=== PATIENT | female | born 1955 | race American Indian/Alaskan Native ===

== ENCOUNTER 2021-03-21 18:07 | Inpatient (IN) | payer SELFPAY ==
--- NOTE | 2021-03-21 18:48 | Emergency Department Report ---
ED General Adult HPI - General Chief complaint: Neuro Symptoms/Deficit Stated complaint: NUMBNESS LT SIDE FACE, SHOULDER ARM LEG PUI?: No Time Seen by Provider: 03/21/21 18:34 Source: patient, RN notes reviewed Mode of arrival: Ambulatory Limitations: No Limitations - History of Present Illness Initial comments: The patient is a 65-year-old female. She is not known to myself previously. She has a history of atrial fibrillation, and is maintained on aspirin. She also has a history of diabetes, hypertension and high cholesterol. She has a distant history of left-sided ocular prosthesis. She received her first COVID-19 vaccination 6 days ago. She presents to the ER today with a complaint of painless left-sided facial burning and numbness, left arm numbness, and left leg numbness. She denies headache, midline neck pain, abdominal pain, vomiting and diaphoresis. She endorses intermittent chronic central chest pressure. Left-sided neurologic symptoms are constant. They do not radiate anywhere. They do not have exacerbating relieving factors. She denies bladder/bowel retention incontinence and saddle anesthesia. Chest pain/pressure is intermittent. She states it is "there for a long time." The patient reports she informed he does not have insurance. She is also asking for refill on her insulin. She ran out of her insulin yesterday. -: Gradual, days(s) Location: face, left, upper extremity, lower extremity Severity scale (0 -10): 6 Consistency: constant Improves with: none Worsens with: none - Related Data Allergies Allergy/AdvReac Type Severity Reaction Status Date / Time No Known Allergies Allergy Unverified 08/19/13 11:05 ED Review of Systems ROS: Stated complaint: NUMBNESS LT SIDE FACE, SHOULDER ARM LEG Other details as noted in HPI Constitutional: denies: fever Eyes: denies: eye discharge, vision change ENT: denies: epistaxis Respiratory: denies: cough Cardiovascular: chest pain Gastrointestinal: denies: abdominal pain Neurological: numbness, paresthesias. denies: abnormal gait ED Past Medical Hx - Past Medical History Hx Hypertension: Yes Hx Diabetes: Yes - Surgical History Past Surgical History?: Yes Additional Surgical History: hysterectomy, eye surgery ED Physical Exam - General Limitations: No Limitations General appearance: alert, in no apparent distress - Head Head exam: Present: atraumatic, normocephalic - Eye Eye exam: Present: normal appearance, PERRL (Right eye. Left eye is a prosthetic. Left eye does not react to light), EOMI, other (Visual acuity intact to finger counting, color perception, reading at a close distance). Absent: nystagmus - ENT ENT exam: Present: normal exam, normal orophraynx, mucous membranes moist, normal external ear exam - Neck Neck exam: Present: normal inspection, full ROM. Absent: tenderness, meningismus - Respiratory Respiratory exam: Present: normal lung sounds bilaterally. Absent: respiratory distress, wheezes, rales, rhonchi, stridor, decreased breath sounds - Cardiovascular Cardiovascular Exam: Present: tachycardia, irregular rhythm, normal heart sounds. Absent: bradycardia, systolic murmur, diastolic murmur, rubs, gallop - GI/Abdominal GI/Abdominal exam: Present: soft. Absent: distended, tenderness, guarding, rebound, rigid, pulsatile mass - Extremities Exam Extremities exam: Present: normal inspection, full ROM, other (No facial droop. Tongue midline. Extraocular movements intact bilaterally. Facial sensation intact to light touch in V1, V2, V3 distribution bilaterally. 5 and a 5 strength in 4 extremities. Sensation intact to light touch in 4 extremities.). Absent: pedal edema, calf tenderness - Back Exam Back exam: Present: normal inspection, full ROM. Absent: tenderness, CVA te nderness (R), CVA tenderness (L), paraspinal tenderness, vertebral tenderness - Neurological Exam Neurological exam: Present: alert, oriented X3, normal gait (There is no past- pointing. There is no pronator drift. Normal tkrw-go-clee. Normal gait. Negative Romberg examination. Normal tandem gait), motor sensory deficit (Decreased sensation to light touch left arm and left leg.), other (5 out of 5 strength in 4 extremities.). Absent: CN II-XII intact (Decrease sensation to light touch left side V1, V2, V3 distribution. Tongue midline. EOMI. Hearing grossly intact. Shoulder shrug intact.) - Psychiatric Psychiatric exam: Present: anxious - Skin Skin exam: Present: warm, dry, intact, normal color. Absent: rash ED Course Vital Signs 03/21/21 03/21/21 03/21/21 18:17 19:30 19:40 Temperature 98.9 F 98.7 F Pulse Rate 101 H 91 H 88 Respiratory 14 14 Rate Blood Pressure 180/74 Blood Pressure 117/87 183/72 [Right] O2 Sat by Pulse 99 98 Oximetry - Reevaluation(s) Reevaluation #1: 03/21/21 19:35 Differential diagnosis, including but not limited to: Subacute stroke, paroxysmal A. fib, GERD, gastritis, hiatal hernia, pneumonia, costochondritis, coronary artery disease Assessment and plan: 65-year-old female with a primary complaint of left-sided facial numbness and burning, and left arm numbness, approximately 6 days into her clinical course. She has an NIH score of 1. She is not a TPA candidate as she presents more than 4.5 hours after symptom onset. She does not require emergent endovascular/CT angiographic imaging as she is more than 24 hours into her symptom onset. She is currently in a normal sinus rhythm. She has a GCS of 15. She denies travel, surgery, immobilization, DVT and pulmonary embolism risk factors. She endorses chronic chest pain. Equal pulses in the upper and lower extremities, no pulsatile abdominal mass, not especially hypertensive. Aortic disease is very unlikely. Have recommended admission to the medical service for evaluation for presumed subacute stroke. I have discussed this with the patient. She is agreeable to this plan of care. Neurology recommendations are reviewed and appreciated. Laboratory studies and noncontrast CT scan of the brain are pending. 03/21/21 20:51 Laboratory studies reviewed and appreciated. We will replete potassium. Noncontrast CT scan of the brain suggests thalamic infarct, subacute. Hospital physician, Dr. Levi Clay to admit to IMS - Consultations Consultation #1: 03/21/21 19:33 Discussed history, physical, clinical impression with neurology on-call, Dr. Corea. Patient is 6 days into symptoms. She is therefore not a TPA candidate. In addition, given more than 24 hours of symptoms, no indication for emergent CT angiogram head and neck. Agrees with plan for admission, and subacute stroke work-up. Patient is currently in a sinus rhythm. ED Medical Decision Making - Lab Data Result diagrams: 03/21/21 19:07 03/21/21 19:07 Vital Signs 03/21/21 18:17 Temperature 98.9 F Pulse Rate 101 H Respiratory 14 Rate Blood Pressure 117/87 [Right] O2 Sat by Pulse 99 Oximetry Lab Results 03/21/21 03/21/21 03/21/21 Range/Units 18:17 19:07 19:07 WBC 10.9 (4.5-11.0) K/mm3 RBC 5.46 H (3.65-5.03) M/mm3 Hgb 13.8 (10.1-14.3) gm/dl Hct 41.0 (30.3-42.9) % MCV 75 L (79-97) fl MCH 25 L (28-32) pg MCHC 34 (30-34) % RDW 16.7 H (13.2-15.2) % Plt Count 434 (140-440) K/mm3 Lymph % (Auto) 28.4 (13.4-35.0) % [place] % (Auto) 5.0 (0.0-7.3) % Eos % (Auto) 1.2 (0.0-4.3) % Baso % (Auto) 1.1 (0.0-1.8) % Lymph # (Auto) 3.1 (1.2-5.4) K/mm3 [place] # (Auto) 0.5 (0.0-0.8) K/mm3 Eos # (Auto) 0.1 (0.0-0.4) K/mm3 Baso # (Auto) 0.1 (0.0-0.1) K/mm3 Seg Neutrophils % 64.3 (40.0-70.0) % Seg Neutrophils # 7.0 (1.8-7.7) K/mm3 PT 13.3 (12.2-14.9) Sec. INR 0.91 (0.87-1.13) APTT 29.1 (24.2-36.6) Sec. Thrombin Time 17.7 (15.1-19.6) Sec. POC Glucose 182 H (70-105) mg/dL - EKG Data -: EKG Interpreted by Hi EKG shows normal: sinus rhythm Rate: normal - EKG Data When compared to previous EKG there are: previous EKG unavailable 03/21/21 19:34 EKG #1 is interpreted at 18: 49 Sinus rhythm, rate 92 bpm. Normal axis, normal P wave axis. Poor R wave progression. QTc 502 ms. Motion artifact. This is not a STEMI. - Radiology Data Radiology results: pending, report reviewed, image reviewed CT BRAIN: 03/21/2021 INDICATION / CLINICAL INFORMATION: Stroke symptoms. COMPARISON: None available. FINDINGS: BRAIN/INTRACRANIAL STRUCTURES: [place] cal CT images of the brain demonstrate no evidence of acute abnormality. Ventricles and sulci are slightly prominent in size, consistent with age-related atrophic change. 5 mm hypodensity in the right thalamus is present, consistent with chronic lacunar ischemic injury. There is no evidence of acute large vessel territory ischemic injury, hemorrhage, or mass. EXTRACRANIAL STRUCTURES: Incidental note is made of a left ocular prosthesis. IMPRESSION: No acute abnormality. All CT scans at this location are performed using dose reduction to ALARA by means of automated exposure control. Signer Name: Prashant Calvert MD Signed: 03/21/2021 7:34 PM CHEST 2 VIEWS INDICATION / CLINICAL INFORMATION: hx of cp. COMPARISON: None available. FINDINGS: SUPPORT DEVICES: None. HEART / MEDIASTINUM: No significant abnormality. LUNGS / PLEURA: No significant pulmonary or pleural abnormality. No pneumothorax. ADDITIONAL FINDINGS: No significant additional findings. IMPRESSION: 1. No acute findings. Signer Name: Juan Lindo MD Signed: 03/21/2021 6:13 PM Workstation Name: [id number] Critical Care Time: Yes Critical care time in (mins) excluding proc time.: 35 Critical care attestation.: If time is entered above; I have spent that time in minutes in the direct care of this critically ill patient, excluding procedure time. ED Disposition Clinical Impression: History of chest pain, Left sided numbness, Paroxysmal A-fib, Hypokalemia Disposition: ADMITTED INPATIENT Is pt being admited?: Yes Does the pt Need Aspirin: No Condition: Good Heart Score - HEART Score History: Slightly suspicious EKG: Non-specific Age: 45-65 Risk factors: > 3 risk factors or hx of atherosclerotic disease Troponin: < normal limit HEART Score: 4 - EKG Read Time Time EKG Completed: 18:49 EKG Read Time: 18:49 - Critical Actions Critical Actions: 4-6 pts:12-16.6% risk of adverse cardiac event. Should be admitted - Assessment Assessment Interval: Baseline - Level of Consciousness 1a. Level of Consciousness: alert/keenly responsive - LOC Questions 1b. LOC Questions: answers both correctly - LOC Command 1c. LOC Commands: performs tasks correctly - Best Gaze 2. Best Gaze: normal - Visual 3. Visual: no visual loss - Facial Palsy 4. Facial Palsy: normal symmetrical movement - Motor Arm 5a. Motor Arm Left: no drift 5b. Motor Arm Right: no drift - Motor Leg 6a. Motor Leg Left: no drift 6b. Motor Leg Right: no drift - Limb Ataxia 7. Limb Ataxia: absent - Sensory 8. Sensory: mild/moderate sensory loss - Best Language 9. Best Language: no aphasia - Dysarthria 10. Dysarthria: normal - Extinction and Inattention 11. Extinction/Inattention: no abnormality - Scoring Total Score: 1 Stroke Severity: Minor Stroke
[2021-03-21] MEDS ORDERED: dilTIAZem 30 MG TAB PO ONE (18:52)
[2021-03-21] MEDS ORDERED: dilTIAZem 25 MG/5 ML INJ IV ONE (18:52)
--- NOTE | 2021-03-21 19:17 | Emergency Department Report ---
Blank Doc - Documentation Documentation: [facility] Consult Note # Demographics Consult Type: General Neurology Patient Location: Emergency Room First Name: Shandra Last Name: Bossman Date of : 1955 Age: 65 Gender: Female Facility: [facility] Time of Initial Page (Eastern Time): 03/21/2021, 18:51 Time of Return Call (Eastern Time): 03/21/2021, 18:51 Phone Only Consult: 65yo F presents with 5-6 days of left sided numbness. she is correlating this with getting her first COVID shot. has loss of sensation on exam. # PMH-FH-SH Past Medical History: A-fib Diabetes hyperlipidemia # Assessment Impression: Ischemic Stroke (Subacute) # Plan Blood Pressure Management: labetolol Target Blood Pressure: SBP < 220 SBP > 100 Labs: hemoglobin A1c lipid panel Imaging: (urgency: STAT): CT Angiogram Head and CT Angiogram Neck AND call back with results if abnormal Imaging: (urgency: routine): MRI Brain without contrast Diagnostic Test: echo without bubble study Therapy/Evaluation: NPO until swallow evaluation PT/OT evaluation speech/swallow consultation Medication: aspirin 81 mg daily start statin with goal of LDL < 70 ultimately will need anticoagulation for a fib as this is the cause of the stroke if confirmed DVT Prophylaxis: SCD Other: LDL < 70 If patient has any neurological deterioration please call me back immediately permissive hypertension telemetry monitoring I have discussed my recommendations with the referring provider Disposition: admit # Logistics Telemedicine: phone only
--- NOTE | 2021-03-21 19:17 | XRay Report ---
CHEST 2 VIEWS INDICATION / CLINICAL INFORMATION: hx of cp. COMPARISON: None available. FINDINGS: SUPPORT DEVICES: None. HEART / MEDIASTINUM: No significant abnormality. LUNGS / PLEURA: No significant pulmonary or pleural abnormality. No pneumothorax. ADDITIONAL FINDINGS: No significant additional findings. IMPRESSION: 1. No acute findings. Signer Name: Juan Lindo MD Signed: 03/21/2021 7:13 PM Workstation Name: [id number]
[2021-03-21 19:20] LABS: Basophils # (Auto) 0.1 K/mm3 (0.0-0.1); Basophils % (Auto) 1.1 % (0.0-1.8); Eosinophils # (Auto) 0.1 K/mm3 (0.0-0.4); Eosinophils % (Auto) 1.2 % (0.0-4.3); Hemoglobin 13.8 gm/dl (10.1-14.3); Lymphocytes # (Auto) 3.1 K/mm3 (1.2-5.4); Lymphocytes % (Auto) 28.4 % (13.4-35.0); Mean Corpuscular HGB Conc 34 % (30-34); Mean Corpuscular Volume 75 fl (79-97); Monocytes # (Auto) 0.5 K/mm3 (0.0-0.8); Platelet Count 434 K/mm3 (140-440); Red Blood Count 5.46 M/mm3 (3.65-5.03); Red Cell Distribution Width 16.7 % (13.2-15.2)
[2021-03-21 19:33] LABS: INR 0.91 (0.87-1.13); Partial Thromboplastin Time 29.1 Sec. (24.2-36.6)
[2021-03-21 19:34] LABS: Thrombin Time 17.7 Sec. (15.1-19.6)
[2021-03-21 19:44] LABS: Creatine Kinase MB 1.4 ng/mL (0.0-4.0)
[2021-03-21 19:45] LABS: Alanine Aminotransferase 37 units/L (7-56); Albumin 3.9 g/dL (3.9-5); BUN/Creatinine Ratio 16; Blood Urea Nitrogen 13 mg/dL (7-17); Calcium 9.9 mg/dL (8.4-10.2); Hemolysis Index 7
[2021-03-21] MEDS ORDERED: POTASSIUM CHLORIDE ER 20 MEQ TAB PO ONE (20:25)
--- NOTE | 2021-03-21 20:38 | Cat Scan Report ---
CT BRAIN: 03/21/2021 INDICATION / CLINICAL INFORMATION: Stroke symptoms. COMPARISON: None available. FINDINGS: BRAIN/INTRACRANIAL STRUCTURES: Unenhanced CT images of the brain demonstrate no evidence of acute abn ormality. Ventricles and sulci are slightly prominent in size, consistent with age-related atrophic change. 5 mm hypodensity in the right thalamus is present, consistent with chronic lacunar ischemic injury. There is no evidence of acute large vessel territory ischemic injury, hemorrhage, or mass. EXTRACRANIAL STRUCTURES: Incidental note is made of a left ocular prosthesis. IMPRESSION: No acute abnormality. All CT scans at this location are performed using dose reduction to ALARA by means of automated expos ure control. Signer Name: Prashant Calvert MD Signed: 03/21/2021 8:34 PM Workstation Name: [id number]
[2021-03-21] MEDS ORDERED: ASPIRIN 81 MG TAB CHEW PO ONE (20:51)
[2021-03-21 21:57] LABS: Bacteria,Urine 1+ /HPF (Negative); Bilirubin,Urine NEG (Negative); Blood,Urine NEG (Negative); Color,Urine Yellow (Yellow); Mucus,Urine FEW /HPF; Urobilinogen,Urine < 2.0 mg/dL (<2.0)
[2021-03-21 22:00] LABS: Protein,Urine >500 mg/dL (Negative)
[2021-03-21] MEDS ORDERED: METOCLOPRAMIDE 10 MG TAB PO PRN (22:36)
[2021-03-21] MEDS ORDERED: MORPHINE 4 MG/1 ML INJ IV PRN (22:36)
[2021-03-21] MEDS ORDERED: MAGNESIUM HYDROXIDE (MOM) ORAL LIQD UDC PO PRN (22:36)
[2021-03-21] MEDS ORDERED: PROMETHAZINE 25 MG RECT SUPP PR PRN (22:36)
[2021-03-21] MEDS ORDERED: DEXTROSE 50% IN WATER (25GM) 50 ML SYRINGE IV PRN (22:36)
--- NOTE | 2021-03-21 22:52 | History and Physical Report ---
History of Present Illness Date of examination: 03/21/21 Date of admission: 03/21/21 21:56 Chief complaint: Left Sided Numbness History of present illness: 65-year-old -[place] female with known history of hypertension, hyperlipidemia, diabetes mellitus and known history of atrial fibrillation presenting to the emergency room today complaining of left-sided numbness which has been ongoing for about 6 days. Patient states that she got first dose of COVID-19 less than a week ago. She denies any fever or chills, no headache or dizziness, no diaphoresis. No chest pain or shortness of breath. She however indicates that her blood pressure has not been well controlled at home. Her blood pressure today was reading about 200s systolic prior to reporting to the emergency room. She denies any slurred speech or facial asymmetry and denies any difficulty swallowing. She denies any bladder or urinary incontinence. Denies any blurry vision. However she has known history of left eye prosthesis. Work-up in the emergency room today, there is a 5 mm hypodensity in the right thalamus consistent with a chronic lacunar ischemic injury. Chest x-ray shows no acute findings. Past History Past Medical History: diabetes, hypertension Past Surgical History: hysterectomy, Other (Left Eye surgery) Social history: no significant social history Family history: no significant family history Medications and Allergies Allergies Allergy/AdvReac Type Severity Reaction Status Date / Time No Known Allergies Allergy Verified 03/21/21 22:55 Active Meds: Active Medications Acetaminophen (Acetaminophen 325 Mg Tab) 650 mg PO Q4H PRN PRN Reason: Pain, Mild (1-3) Aspirin (Aspirin 325 Mg Tab) 325 mg PO QDAY SLOANE Atorvastatin Calcium (Atorvastatin 40 Mg Tab) 40 mg PO QHS SLOANE Bisacodyl (Bisacodyl 10 Mg Rect Supp) 10 mg UT QDAY PRN PRN Reason: Constipation Dextrose (Dextrose 50% In Water (25gm) 50 Ml Syringe) 50 ml IV Q30MIN PRN; Protocol PRN Reason: Hypoglycemia Insulin Human Lispro (Insulin Lispro 100 Unit/Ml) 0 unit SUB-Q ACHS SLOANE; Protocol Magnesium Hydroxide (Magnesium Hydroxide (Mom) Oral Liqd Udc) 30 ml PO Q4H PRN PRN Reason: Constipation Metoclopramide HCl (Metoclopramide 10 Mg Tab) 10 mg PO Q6H PRN PRN Reason: Nausea And Vomiting Morphine Sulfate (Morphine 4 Mg/1 Ml Inj) 4 mg IV Q4H PRN PRN Reason: Pain , Severe (7-10) Morphine Sulfate (Morphine 2 Mg/1 Ml Inj) 2 mg IV Q4H PRN PRN Reason: Pain, Moderate (4-6) Ondansetron HCl (Ondansetron 4 Mg/2 Ml Inj) 4 mg IV Q8H PRN PRN Reason: Nausea And Vomiting Promethazine HCl (Promethazine 25 Mg Rect Supp) 25 mg UT Q6H PRN PRN Reason: Nausea And Vomiting Sodium Chloride (Sodium Chloride 0.9% 10 Ml Flush Syringe) 10 ml INJ PRN PRN PRN Reason: LINE FLUSH Review of Systems Constitutional: no fever, no chills Ears, nose, mouth and throat: no nasal congestion, no sore throat Cardiovascular: no chest pain, no palpitations Respiratory: no cough, no cough with sputum, no shortness of breath Gastrointestinal: no abdominal pain, no nausea, no vomiting, no diarrhea Genitourinary Female: no pelvic pain, no flank pain, no dysuria, no hematuria Musculoskeletal: no neck pain, no low back pain Integumentary: no rash, no pruritis Neurological: numbness (Left sided), no headaches, no change in speech, no confusion Psychiatric: no anxiety, no depression Endocrine: no polyphagia, no polydipsia, no polyuria, no nocturia Exam - Constitutional Vitals: Temp Pulse Resp BP Pulse Ox 98.7 F 88 14 180/74 98 03/21/21 19:30 03/21/21 19:40 03/21/21 19:30 03/21/21 19:40 03/21/21 19:30 General appearance: Present: no acute distress, well-nourished - EENT Eyes: Present: PERRL, EOM intact. Absent: scleral icterus ENT: hearing intact, clear oral mucosa, dentition normal - Neck Neck: Present: supple, normal ROM - Respiratory Respiratory effort: normal Respiratory: bilateral: CTA - Cardiovascular Rhythm: irregularly irregular Heart Sounds: Present: S1 & S2. Absent: gallop, systolic murmur, diastolic murmur, rub, click - Extremities Extremities: no ischemia, pulses intact, pulses symmetrical, No edema, normal temperature, normal color, Full ROM Peripheral Pulses: within normal limits - Abdominal General gastrointestinal: Present: soft, non-tender, non-distended, normal bowel sounds. Absent: mass - Integumentary Integumentary: Present: clear, warm, dry. Absent: rash - Musculoskeletal Musculoskeletal: strength equal bilaterally - Psychiatric Psychiatric: appropriate mood/affect, intact judgment & insight, memory intact, cooperative - Neurologic Neurologic: CNII-XII intact, no focal deficits, moves all extremities, other (Left sided Numbness) HEART Score - HEART Score EKG: Non-specific Age: 45-65 Risk factors: > 3 risk factors or hx of atherosclerotic disease Troponin: Troponin T < 0.010 ng/mL (0.00-0.029) 03/21/21 19:07 Troponin: < normal limit - Critical Actions Critical Actions: 4-6 pts:12-16.6% risk of adverse cardiac event. Should be admitted Results - Labs CBC & Chem 7: 03/21/21 19:07 03/21/21 19:07 Labs: Abnormal lab results 03/21/21 03/21/21 03/21/21 Range/Units 18:17 19:07 19:07 RBC 5.46 H (3.65-5.03) M/mm3 MCV 75 L (79-97) fl MCH 25 L (28-32) pg RDW 16.7 H (13.2-15.2) % Sodium 136 L (137-145) mmol/L Potassium 3.2 L (3.6-5.0) mmol/L Chloride 94.8 L (98-107) mmol/L Glucose 239 H (65-100) mg/dL POC Glucose 182 H (70-105) mg/dL Alkaline Phosphatase 204 H (35-129) units/L Assessment and Plan - Patient Problems (1) Left sided numbness Current Visit: Yes Status: Acute Plan to address problem: Will work-up patient for possible CVA. Patient commenced on daily aspirin. We will schedule for echocardiogram, carotid Doppler and MRI of the brain. We will request neurology follow-up. (2) Hypokalemia Current Visit: Yes Status: Acute Plan to address problem: Potassium will be repleted and will monitor chemistry. (3) Diabetes mellitus Current Visit: Yes Status: Acute Plan to address problem: We will monitor Accu-Cheks closely. Patient placed on sliding scale insulin. (4) Hypertension Current Visit: Yes Status: Acute Plan to address problem: We will resume routine home medications and monitor vital signs closely. (5) Paroxysmal A-fib Current Visit: Yes Status: Acute Plan to address problem: Rate is controlled. (6) DVT prophylaxis Current Visit: Yes Status: Acute Plan to address problem: Patient placed on subcutaneous heparin. (7) Full code status Current Visit: Yes Status: Acute Plan to address problem: Patient is full code.
[2021-03-22] MEDS: ONDANSETRON 4 MG/2 ML INJ IV PRN (00:22)
[2021-03-22 07:31] LABS: Blood Urea Nitrogen 14 mg/dL (7-17); Calcium 9.1 mg/dL (8.4-10.2); Hemolysis Index 3
[2021-03-22 07:35] LABS: Chol/HDL Ratio 6.59 %
[2021-03-22 07:38] LABS: BUN/Creatinine Ratio 23
[2021-03-22] MEDS: INSULIN LISPRO 100 UNIT/ML SUB-Q SCH ×4 (08:30→21:23)
[2021-03-22] MEDS ORDERED: LORazepam 2 MG/ML VIAL IV ONE (09:01)
[2021-03-22] MEDS: ASPIRIN 325 MG TAB PO SCH (09:35)
--- NOTE | 2021-03-22 09:54 | Progress Note ---
Assessment and Plan Assessment and plan: 65-year-old -Nepalese female with known history of hypertension, hyperlipidemia, diabetes mellitus and known history of atrial fibrillation presented to the emergency room complaining of left-sided numbness which has been ongoing for about 6 days LICENSED ARCHITECT. Patient reported that her blood pressure had not been well controlled at home. Her blood pressure on admission was reading about 200s systolic prior to reporting to the emergency room. She denied any slurred speech or facial asymmetry and denied any difficulty swallowing. She denied any bladder or urinary incontinence. Denied any blurry vision. However, she has known history of left eye prosthesis. Work-up in the emergency room included CT scan which revealed a 5 mm hypodensity in the right thalamus consistent with a chronic lacunar ischemic injury. Chest x-ray showed no acute findings. CVA with left-sided numbness Hypokalemia Diabetes mellitus type 2 Hypertension Paroxysmal atrial fibrillation 03/22/2021. We will continue with stroke work-up and follow-up MRI of brain, echocardiogram and carotid ultrasound. Neurology consultation pending. PT/OT/ST evaluations. History Interval history: No new issues overnight Hospitalist Physical - Constitutional Vitals: Temp Pulse Resp BP Pulse Ox 98.7 F 80 17 156/72 94 03/21/21 19:30 03/22/21 05:45 03/22/21 08:45 03/22/21 08:45 03/22/21 08:45 General appearance: Present: no acute distress, well-nourished - EENT Eyes: Present: PERRL, EOM intact ENT: hearing intact, clear oral mucosa, dentition normal - Neck Neck: Present: supple, normal ROM - Respiratory Respiratory effort: normal Respiratory: bilateral: CTA - Cardiovascular Rhythm: regular Heart Sounds: Present: S1 & S2. Absent: gallop, rub - Extremities Extremities: no ischemia, No edema, Full ROM - Abdominal General gastrointestinal: soft, non-tender, non-distended, normal bowel sounds - Integumentary Integumentary: Present: clear, warm, dry - Neurologic Neurologic: CNII-XII intact, moves all extremities HEART Score - HEART Score EKG: Non-specific Age: 45-65 Risk factors: > 3 risk factors or hx of atherosclerotic disease Troponin: Troponin T < 0.010 ng/mL (0.00-0.029) 03/21/21 19:07 Troponin: < normal limit - Critical Actions Critical Actions: 4-6 pts:12-16.6% risk of adverse cardiac event. Should be admitted Results - Labs CBC & Chem 7: 03/21/21 19:07 03/22/21 06:53 Labs: Laboratory Last Values WBC 10.9 K/mm3 (4.5-11.0) 03/21/21 19:07 RBC 5.46 M/mm3 (3.65-5.03) H 03/21/21 19:07 Hgb 13.8 gm/dl (10.1-14.3) 03/21/21 19:07 Hct 41.0 % (30.3-42.9) 03/21/21 19:07 MCV 75 fl (79-97) L 03/21/21 19:07 MCH 25 pg (28-32) L 03/21/21 19:07 MCHC 34 % (30-34) 03/21/21 19:07 RDW 16.7 % (13.2-15.2) H 03/21/21 19:07 Plt Count 434 K/mm3 (140-440) 03/21/21 19:07 Lymph % (Auto) 28.4 % (13.4-35.0) 03/21/21 19:07 [place]pson % (Auto) 5.0 % (0.0-7.3) 03/21/21 19:07 Eos % (Auto) 1.2 % (0.0-4.3) 03/21/21 19:07 Baso % (Auto) 1.1 % (0.0-1.8) 03/21/21 19:07 Lymph # (Auto) 3.1 K/mm3 (1.2-5.4) 03/21/21 19:07 Upson # (Auto) 0.5 K/mm3 (0.0-0.8) 03/21/21 19:07 Eos # (Auto) 0.1 K/mm3 (0.0-0.4) 03/21/21 19:07 Baso # (Auto) 0.1 K/mm3 (0.0-0.1) 03/21/21 19:07 Seg Neutrophils % 64.3 % (40.0-70.0) 03/21/21 19:07 Seg Neutrophils # 7.0 K/mm3 (1.8-7.7) 03/21/21 19:07 PT 13.3 Sec. (12.2-14.9) 03/21/21 19:07 INR 0.91 (0.87-1.13) 03/21/21 19:07 APTT 29.1 Sec. (24.2-36.6) 03/21/21 19:07 Thrombin Time 17.7 Sec. (15.1-19.6) 03/21/21 19:07 Sodium 136 mmol/L (137-145) L 03/22/21 06:53 Potassium 3.9 mmol/L (3.6-5.0) D 03/22/21 06:53 Chloride 97.0 mmol/L (98-107) L 03/22/21 06:53 Carbon Dioxide 27 mmol/L (22-30) 03/22/21 06:53 Anion Gap 16 mmol/L 03/22/21 06:53 BUN 14 mg/dL (7-17) 03/22/21 06:53 Creatinine 0.6 mg/dL (0.6-1.2) 03/22/21 06:53 Estimated GFR > 60 ml/min 03/22/21 06:53 BUN/Creatinine Ratio 23 % 03/22/21 06:53 Glucose 271 mg/dL (65-100) H 03/22/21 06:53 POC Glucose 255 mg/dL (70-105) H 03/22/21 08:17 Calcium 9.1 mg/dL (8.4-10.2) 03/22/21 06:53 Magnesium 2.10 mg/dL (1.7-2.3) 03/21/21 19:07 Total Bilirubin 0.30 mg/dL (0.1-1.2) 03/21/21 19:07 AST 38 units/L (5-40) 03/21/21 19:07 ALT 37 units/L (7-56) 03/21/21 19:07 Alkaline Phosphatase 204 units/L (35-129) H 03/21/21 19:07 Total Creatine Kinase 101 units/L (30-135) 03/21/21 19:07 CK-MB (CK-2) 1.4 ng/mL (0.0-4.0) 03/21/21 19:07 CK-MB (CK-2) Rel Index 1.3 (0-4) 03/21/21 19:07 Troponin T < 0.010 ng/mL (0.00-0.029) 03/21/21 19:07 Total Protein 8.0 g/dL (6.3-8.2) 03/21/21 19:07 Albumin 3.9 g/dL (3.9-5) 03/21/21 19:07 Albumin/Globulin Ratio 1.0 % 03/21/21 19:07 Triglycerides 236 mg/dL (2-149) H 03/22/21 06:53 Cholesterol 290 mg/dL (50-199) H 03/22/21 06:53 LDL Cholesterol Direct 216 mg/dL (50-130) H 03/22/21 06:53 HDL Cholesterol 44 mg/dL (40-59) 03/22/21 06:53 Cholesterol/HDL Ratio 6.59 % 03/22/21 06:53 Urine Color Yellow (Yellow) 03/21/21 21:16 Urine Turbidity Clear (Clear) 03/21/21 21:16 Urine pH 6.0 (5.0-7.0) 03/21/21 21:16 Ur Specific Powell 1.015 (1.003-1.030) 03/21/21 21:16 Urine Protein >500 mg/dL (Negative) 03/21/21 21:16 Urine Glucose (UA) >=500 mg/dL (Negative) 03/21/21 21:16 Urine Ketones Tr mg/dL (Negative) 03/21/21 21:16 Urine Blood Neg (Negative) 03/21/21 21:16 Urine Nitrite Neg (Negative) 03/21/21 21:16 Urine Bilirubin Neg (Negative) 03/21/21 21:16 Urine Urobilinogen < 2.0 mg/dL (<2.0) 03/21/21 21:16 Ur Leukocyte Esterase Neg (Negative) 03/21/21 21:16 Urine WBC (Auto) 2.0 /HPF (0.0-6.0) 03/21/21 21:16 Urine RBC (Auto) 3.0 /HPF (0.0-6.0) 03/21/21 21:16 U Epithel Cells (Auto) 8.0 /HPF (0-13.0) 03/21/21 21:16 Urine Bacteria (Auto) 1+ /HPF (Negative) 03/21/21 21:16 Urine Mucus Few /HPF 03/21/21 21:16 Active Medications - Current Medications Current Medications: Generic Name Dose Route Start Last Admin Trade Name Freq PRN Reason Stop Dose Admin Acetaminophen 650 mg 03/21/21 22:36 Acetaminophen 325 Mg Tab PO Q4H PRN Pain, Mild (1-3) Aspirin 325 mg 03/22/21 10:00 03/22/21 09:35 Aspirin 325 Mg Tab PO 325 mg QDAY SLOANE Administration Atorvastatin Calcium 40 mg 03/22/21 22:00 Atorvastatin 40 Mg Tab PO QHS SLOANE Bisacodyl 10 mg 03/21/21 22:36 Bisacodyl 10 Mg Rect Supp AR QDAY PRN Constipation Dextrose 50 ml 03/21/21 22:36 Dextrose 50% In Water (25gm) 50 Ml Syringe IV Q30MIN PRN Hypoglycemia Protocol Insulin Human Lispro 0 unit 03/22/21 07:30 03/22/21 08:30 Insulin Lispro 100 Unit/Ml SUB-Q 4 unit ACHS SLOANE Administration Protocol Magnesium Hydroxide 30 ml 03/21/21 22:36 Magnesium Hydroxide (Mom) Oral Liqd Udc PO Q4H PRN Constipation Metoclopramide HCl 10 mg 03/21/21 22:36 Metoclopramide 10 Mg Tab PO Q6H PRN Nausea And Vomiting Morphine Sulfate 4 mg 03/21/21 22:36 03/22/21 00:19 Morphine 4 Mg/1 Ml Inj IV 4 mg Q4H PRN Administration Pain , Severe (7-10) Morphine Sulfate 2 mg 03/21/21 22:36 Morphine 2 Mg/1 Ml Inj IV Q4H PRN Pain, Moderate (4-6) Ondansetron HCl 4 mg 03/21/21 22:36 03/22/21 00:22 Ondansetron 4 Mg/2 Ml Inj IV 4 mg Q8H PRN Administration Nausea And Vomiting Promethazine HCl 25 mg 03/21/21 22:36 Promethazine 25 Mg Rect Supp AR Q6H PRN Nausea And Vomiting Sodium Chloride 10 ml 03/21/21 22:36 Sodium Chloride 0.9% 10 Ml Flush Syringe IV PRN PRN LINE FLUSH
--- NOTE | 2021-03-22 10:47 | Magnetic Resonance Report ---
NONENHANCED MR SCAN OF THE BRAIN: INDICATION / CLINICAL INFORMATION: stroke, LT SIDED WEAKNESS. TECHNIQUE: Multiplanar, multisequence MR images of the brain obtained. COMPARISON: CT scan of the head from 03/21/2021 FINDINGS: BRAIN / INTRACRANIAL CONTENTS: Punctate area of subacute ischemia in the right thalamus, not extendin g up to the border of posterior limb of right internal capsule; this infarction more than 12 hours ol d (increased T2 signal intensity) but less than 5 days old (low ADC). In the gradient echo images, no susceptibility changes seen which would exclude hemorrhagic changes. Brainstem is normal. No focal lesion seen in the cerebellar hemispheres. However, moderate volume los s is seen in the cerebellar hemispheres. In the cerebral hemispheres, few scattered white matter lesi ons (Fazekas 0-1) due to chronic small vessel disease. CRANIOCERVICAL JUNCTION: No significant abnormality. VASCULAR FLOW-VOIDS: No significant abnormality. ORBITS: Prosthesis in the left orbit SINUSES / MASTOIDS: Mucosal thickening in the right posterior ethmoid air cells ADDITIONAL FINDINGS: Pituitary gland appears generous on the left side (height of the gland 8 mm on t he left side) IMPRESSION: Subacute nonhemorrhagic lacune in the right thalamus Signer Name: Bella Lentz MD Signed: 03/22/2021 10:43 AM Workstation Name: [id number]
--- NOTE | 2021-03-22 11:23 | Electrocardiograph Report ---
[facility] Test Date: 2021-03-21 Test Time: 18:49:45 Pat Name: SHYLA ISAAC Department: Room: [place] [address] Gender: F Compensation Programs Manager: CONSTANTIN : 1955 Requested By: SHO MARTINEZ Order Number: [id number] Reading MD: Rosanne Hawthorne Measurements Intervals [place] Rate: 92 P: 64 TN: 176 QRS: 63 QRSD: 90 T: 6 QT: 405 QTc: 502 Interpretive Statements Sinus rhythm Occasional PACs Probable left atrial enlargement Anterior infarct, old Prolonged QT interval No previous ECG available for comparison Electronically Signed On 03-22-2021 11:23:09 EST by Rosanne Hawthorne
--- NOTE | 2021-03-22 13:00 | Vascular Lab Report ---
DUPLEX DOPPLER ULTRASOUND CAROTID, BILATERAL INDICATION / CLINICAL INFORMATION: . COMPARISON: None available. FINDINGS: RIGHT CAROTID: Moderate to severe calcified and noncalcified plaque formation at the proximal ICA jermain r the bifurcation. - PLAQUE ESTIMATE (%): 50 to 69% stenosis at the right ICA based on velocity criteria. - CCA velocity: 131 cm/sec. - ICA peak systolic velocity: 197 cm/sec. - ICA/CCA PSV Ratio: Less than 2.0 Right Vertebral Artery: Antegrade flow. LEFT CAROTID: Moderate calcified and noncalcified plaque formation at the proximal ICA near the bifur cation. - PLAQUE ESTIMATE (%): < 50% - CCA velocity: 146 cm/sec. - ICA peak systolic velocity: 127 cm/sec. - ICA/CCA PSV Ratio: Less than 2.0 Left Vertebral Artery: Antegrade flow. IMPRESSION: 1. Right Internal Carotid Artery: 50-69% stenosis. 2. Left Internal Carotid Artery: Less than 50% diameter stenosis. Velocity criteria are extrapolated from diameter data as defined by the Society of Radiologists in Ul trasound Consensus Conference, Radiology 2003; 229;340-346. NO STENOSIS (NORMAL) - Plaque = none; ICA PSV < 125 cm/sec; ICA/CCA PSV Ratio < 2.0 <50% STENOSIS - Plaque < 50%; ICA PSV < 125 cm/sec; ICA/CCA PSV Ratio < 2.0 50-69% STENOSIS - Plaque > 50%; ICA PSV = 125-230 cm/sec; ICA/CCA PSV Ratio = 2.0-4.0 >70% BUT <100% STENOSIS - Plaque > 50%; ICA PSV > 230 cm/sec; ICA/CCA PSV Ratio > 4.0 NEAR OCCLUSION - Plaque = visible lumen; ICA PSV = high/low/none; ICA/CCA PSV Ratio = variable TOTAL OCCLUSION - Plaque = no lumen; ICA PSV = none; ICA/CCA PSV Ratio = N/A Signer Name: Moncho Walls MD Signed: 03/22/2021 12:56 PM Workstation Name: [id number]
--- NOTE | 2021-03-22 15:38 | Consultation ---
History of Present Illness Consult date: 03/22/21 Reason for Consult: CVA History of present illness: 5-year-old -[place] female with known history of hypertension, hyperlipidemia, diabetes mellitus and known history of atrial fibrillation presenting to the emergency room today complaining of left-sided numbness which has been ongoing for about 6 days. Patient states that she got first dose of COVID-19 less than a week ago. She denies any fever or chills, no headache or dizziness, no diaphoresis. No chest pain or shortness of breath. She however indicates that her blood pressure has not been well controlled at home. Her blood pressure today was reading about 200s systolic prior to reporting to the emergency room. She denies any slurred speech or facial asymmetry and denies any difficulty swallowing. She denies any bladder or urinary incontinence. Denies any blurry vision. However she has known history of left eye prosthesis. Work-up in the emergency room today, there is a 5 mm hypodensity in the right thalamus consistent with a chronic lacunar ischemic injury. Chest x-ray shows no acute findings. Overall some improvement , no worsening in the symptoms . Past History Past Medical History: diabetes, hypertension Past Surgical History: hysterectomy, Other (Left Eye surgery) Social history: no significant social history Family history: no significant family history Medications and Allergies Allergies Allergy/AdvReac Type Severity Reaction Status Date / Time No Known Allergies Allergy Verified 03/21/21 22:55 Active Meds: Active Medications Acetaminophen (Acetaminophen 325 Mg Tab) 650 mg PO Q4H PRN PRN Reason: Pain, Mild (1-3) Aspirin (Aspirin 325 Mg Tab) 325 mg PO QDAY SLOANE Last Admin: 03/22/21 09:35 Dose: 325 mg Documented by: Atorvastatin Calcium (Atorvastatin 40 Mg Tab) 40 mg PO QHS SLOANE Bisacodyl (Bisacodyl 10 Mg Rect Supp) 10 mg IN QDAY PRN PRN Reason: Constipation Dextrose (Dextrose 50% In Water (25gm) 50 Ml Syringe) 50 ml IV Q30MIN PRN; Pro tocol PRN Reason: Hypoglycemia Insulin Human Lispro (Insulin Lispro 100 Unit/Ml) 0 unit SUB-Q ACHS SLOANE; Protocol Last Admin: 03/22/21 11:32 Dose: 2 unit Documented by: Magnesium Hydroxide (Magnesium Hydroxide (Mom) Oral Liqd Udc) 30 ml PO Q4H PRN PRN Reason: Constipation Metoclopramide HCl (Metoclopramide 10 Mg Tab) 10 mg PO Q6H PRN PRN Reason: Nausea And Vomiting Morphine Sulfate (Morphine 4 Mg/1 Ml Inj) 4 mg IV Q4H PRN PRN Reason: Pain , Severe (7-10) Last Admin: 03/22/21 00:19 Dose: 4 mg Documented by: Morphine Sulfate (Morphine 2 Mg/1 Ml Inj) 2 mg IV Q4H PRN PRN Reason: Pain, Moderate (4-6) Ondansetron HCl (Ondansetron 4 Mg/2 Ml Inj) 4 mg IV Q8H PRN PRN Reason: Nausea And Vomiting Last Admin: 03/22/21 00:22 Dose: 4 mg Documented by: Promethazine HCl (Promethazine 25 Mg Rect Supp) 25 mg IN Q6H PRN PRN Reason: Nausea And Vomiting Sodium Chloride (Sodium Chloride 0.9% 10 Ml Flush Syringe) 10 ml IV PRN PRN PRN Reason: LINE FLUSH Physical Examination - Vital Signs Vital Signs: Vital Signs Temp Pulse Resp BP Pulse Ox 98.9 F 101 H 14 117/87 99 03/21/21 18:17 03/21/21 18:17 03/21/21 18:17 03/21/21 18:17 03/21/21 18:17 - Physical Exam Narrative exam: The patient is alert, there is mild left facial asymetry , moves all 4 ex tremities . Results - Laboratory Findings CBC and BMP: 03/21/21 19:07 03/22/21 06:53 Abnormal Lab Findings: Abnormal Labs 03/21/21 03/21/21 03/21/21 18:17 19:07 19:07 RBC 5.46 H MCV 75 L MCH 25 L RDW 16.7 H Sodium 136 L Potassium 3.2 L Chloride 94.8 L Glucose 239 H POC Glucose 182 H Alkaline Phosphatase 204 H Triglycerides Cholesterol LDL Cholesterol Direct 03/22/21 03/22/21 03/22/21 06:53 06:53 08:17 RBC MCV MCH RDW Sodium 136 L Potassium Chloride 97.0 L Glucose 271 H POC Glucose 255 H Alkaline Phosphatase Triglycerides 236 H Cholesterol 290 H LDL Cholesterol Direct 216 H 03/22/21 11:25 RBC MCV MCH RDW Sodium Potassium Chloride Glucose POC Glucose 196 H Alkaline Phosphatase Triglycerides Cholesterol LDL Cholesterol Direct Assessment and Plan 1. 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 secondary to Risk Factors of CVA ? less likely secondary to COVID Vaccination . 2. Reviewed MRI Brain . 3. Continue all Home Medications . 4. No new medications have been started . 5. Follow up with Neurology in [address]
[2021-03-22] MEDS: hydrALAZINE 100 MG TAB PO SCH ×2 (18:52→21:24)
[2021-03-22] MEDS: cloNIDine 0.2 MG TAB PO SCH (18:52)
[2021-03-23] MEDS: MORPHINE 2 MG/1 ML INJ IV PRN ×2 (00:44→19:52)
[2021-03-23] MEDS: ONDANSETRON 4 MG/2 ML INJ IV PRN ×2 (00:52→21:52)
[2021-03-23] MEDS: amLODIPine 10 MG TAB PO SCH (10:56)
[2021-03-23] MEDS: ASPIRIN 325 MG TAB PO SCH (10:56)
[2021-03-23] MEDS: INSULIN LISPRO 100 UNIT/ML SUB-Q SCH ×4 (10:56→21:53)
[2021-03-23] MEDS: cloNIDine 0.2 MG TAB PO SCH (10:56)
[2021-03-23] MEDS: hydrALAZINE 100 MG TAB PO SCH ×2 (10:56→21:52)
--- NOTE | 2021-03-23 10:57 | Progress Note ---
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 Her blood pressure on admission was reading about 200s systolic prior to reporting to the emergency room. She denied any slurred speech or facial asymmetry and denied any difficulty swallowing. She denied any bladder or urinary incontinence. Denied any blurry vision. However, she has known history of left eye prosthesis. Work-up in the emergency room included CT scan which revealed a 5 mm hypodensity in the right thalamus consistent with a chronic lacunar ischemic injury. Chest x-ray showed no acute findings. CVA with left-sided numbness Hypokalemia Diabetes mellitus type 2 Hypertension Paroxysmal atrial fibrillation 03/22/2021. We will continue with stroke work-up and follow-up MRI of brain, echocardiogram and carotid ultrasound. Neurology consultation pending. PT/OT/ST evaluations. 03/23/2021. Carotid Doppler reveals AUSTIN with 50 to 69% stenosis and LICA with less than 50% stenosis. Echocardiogram reveals left ventricular systolic function normal with EF in normal range 50-55%. Mild diastolic dysfunction. No PFO. MRI reveals subacute nonhemorrhagic lacunar infarct in the right thalamus. Await neurology consultation. Continue aspirin and Lipitor. Await physical therapy evaluation. History Interval history: No new issues overnight Hospitalist Physical - Constitutional Vitals: Temp Pulse Resp BP Pulse Ox 97.9 F 80 18 160/65 92 03/23/21 07:41 03/23/21 07:41 03/23/21 07:41 03/23/21 07:41 03/23/21 07:41 General appearance: Present: no acute distress, well-nourished - EENT Eyes: Present: PERRL, EOM intact ENT: hearing intact, clear oral mucosa, dentition normal - Neck Neck: Present: supple, normal ROM - Respiratory Respiratory effort: normal Respiratory: bilateral: CTA - Cardiovascular Rhythm: regular Heart Sounds: Present: S1 & S2. Absent: gallop, rub - Extremities Extremities: no ischemia, No edema, Full ROM - Abdominal General gastrointestinal: soft, non-tender, non-distended, normal bowel sounds - Integumentary Integumentary: Present: clear, warm, dry - Neurologic Neurologic: CNII-XII intact, moves all extremities HEART Score - HEART Score EKG: Non-specific Age: 45-65 Risk factors: > 3 risk factors or hx of atherosclerotic disease Troponin: Troponin T < 0.010 ng/mL (0.00-0.029) 03/21/21 19:07 Troponin: < normal limit - Critical Actions Critical Actions: 4-6 pts:12-16.6% risk of adverse cardiac event. Should be admitted Results - Labs CBC & Chem 7: 03/21/21 19:07 03/22/21 06:53 Labs: Laboratory Last Values WBC 10.9 K/mm3 (4.5-11.0) 03/21/21 19:07 RBC 5.46 M/mm3 (3.65-5.03) H 03/21/21 19:07 Hgb 13.8 gm/dl (10.1-14.3) 03/21/21 19:07 Hct 41.0 % (30.3-42.9) 03/21/21 19:07 MCV 75 fl (79-97) L 03/21/21 19:07 MCH 25 pg (28-32) L 03/21/21 19:07 MCHC 34 % (30-34) 03/21/21 19:07 RDW 16.7 % (13.2-15.2) H 03/21/21 19:07 Plt Count 434 K/mm3 (140-440) 03/21/21 19:07 Lymph % (Auto) 28.4 % (13.4-35.0) 03/21/21 19:07 [place] % (Auto) 5.0 % (0.0-7.3) 03/21/21 19:07 Eos % (Auto) 1.2 % (0.0-4.3) 03/21/21 19:07 Baso % (Auto) 1.1 % (0.0-1.8) 03/21/21 19:07 Lymph # (Auto) 3.1 K/mm3 (1.2-5.4) 03/21/21 19:07 [place] # (Auto) 0.5 K/mm3 (0.0-0.8) 03/21/21 19:07 Eos # (Auto) 0.1 K/mm3 (0.0-0.4) 03/21/21 19:07 Baso # (Auto) 0.1 K/mm3 (0.0-0.1) 03/21/21 19:07 Seg Neutrophils % 64.3 % (40.0-70.0) 03/21/21 19:07 Seg Neutrophils # 7.0 K/mm3 (1.8-7.7) 03/21/21 19:07 PT 13.3 Sec. (12.2-14.9) 03/21/21 19:07 INR 0.91 (0.87-1.13) 03/21/21 19:07 APTT 29.1 Sec. (24.2-36.6) 03/21/21 19:07 Thrombin Time 17.7 Sec. (15.1-19.6) 03/21/21 19:07 Sodium 136 mmol/L (137-145) L 03/22/21 06:53 Potassium 3.9 mmol/L (3.6-5.0) D 03/22/21 06:53 Chloride 97.0 mmol/L (98-107) L 03/22/21 06:53 Carbon Dioxide 27 mmol/L (22-30) 03/22/21 06:53 Anion Gap 16 mmol/L 03/22/21 06:53 BUN 14 mg/dL (7-17) 03/22/21 06:53 Creatinine 0.6 mg/dL (0.6-1.2) 03/22/21 06:53 Estimated GFR > 60 ml/min 03/22/21 06:53 BUN/Creatinine Ratio 23 % 03/22/21 06:53 Glucose 271 mg/dL (65-100) H 03/22/21 06:53 POC Glucose 297 mg/dL (70-105) H 03/23/21 07:39 Calcium 9.1 mg/dL (8.4-10.2) 03/22/21 06:53 Magnesium 2.10 mg/dL (1.7-2.3) 03/21/21 19:07 Total Bilirubin 0.30 mg/dL (0.1-1.2) 03/21/21 19:07 AST 38 units/L (5-40) 03/21/21 19:07 ALT 37 units/L (7-56) 03/21/21 19:07 Alkaline Phosphatase 204 units/L (35-129) H 03/21/21 19:07 Total Creatine Kinase 101 units/L (30-135) 03/21/21 19:07 CK-MB (CK-2) 1.4 ng/mL (0.0-4.0) 03/21/21 19:07 CK-MB (CK-2) Rel Index 1.3 (0-4) 03/21/21 19:07 Troponin T < 0.010 ng/mL (0.00-0.029) 03/21/21 19:07 Total Protein 8.0 g/dL (6.3-8.2) 03/21/21 19:07 Albumin 3.9 g/dL (3.9-5) 03/21/21 19:07 Albumin/Globulin Ratio 1.0 % 03/21/21 19:07 Triglycerides 236 mg/dL (2-149) H 03/22/21 06:53 Cholesterol 290 mg/dL (50-199) H 03/22/21 06:53 LDL Cholesterol Direct 216 mg/dL (50-130) H 03/22/21 06:53 HDL Cholesterol 44 mg/dL (40-59) 03/22/21 06:53 Cholesterol/HDL Ratio 6.59 % 03/22/21 06:53 Urine Color Yellow (Yellow) 03/21/21 21:16 Urine Turbidity Clear (Clear) 03/21/21 21:16 Urine pH 6.0 (5.0-7.0) 03/21/21 21:16 Ur Specific [place] 1.015 (1.003-1.030) 03/21/21 21:16 Urine Protein >500 mg/dL (Negative) 03/21/21 21:16 Urine Glucose (UA) >=500 mg/dL (Negative) 03/21/21 21:16 Urine Ketones Tr mg/dL (Negative) 03/21/21 21:16 Urine Blood Neg (Negative) 03/21/21 21:16 Urine Nitrite Neg (Negative) 03/21/21 21:16 Urine Bilirubin Neg (Negative) 03/21/21 21:16 Urine Urobilinogen < 2.0 mg/dL (<2.0) 03/21/21 21:16 Ur Leukocyte Esterase Neg (Negative) 03/21/21 21:16 Urine WBC (Auto) 2.0 /HPF (0.0-6.0) 03/21/21 21:16 Urine RBC (Auto) 3.0 /HPF (0.0-6.0) 03/21/21 21:16 U Epithel Cells (Auto) 8.0 /HPF (0-13.0) 03/21/21 21:16 Urine Bacteria (Auto) 1+ /HPF (Negative) 03/21/21 21:16 Urine Mucus Few /HPF 03/21/21 21:16 Calderón/IV: Voiding Method Toilet Active Medications - Current Medications Current Medications: Generic Name Dose Route Start Last Admin Trade Name Freq PRN Reason Stop Dose Admin Acetaminophen 650 mg 03/21/21 22:36 Acetaminophen 325 Mg Tab PO Q4H PRN Pain, Mild (1-3) Amlodipine Besylate 10 mg 03/23/21 10:00 Amlodipine 10 Mg Tab PO QDAY [facility] Aspirin 325 mg 03/22/21 10:00 03/22/21 09:35 Aspirin 325 Mg Tab PO 325 mg QDAY [facility] Administration Atorvastatin Calcium 40 mg 03/22/21 22:00 03/22/21 21:24 Atorvastatin 40 Mg Tab PO 40 mg QHS [facility] Administration Bisacodyl 10 mg 03/21/21 22:36 Bisacodyl 10 Mg Rect Supp ME QDAY PRN Constipation Chlorthalidone 25 mg 03/23/21 10:00 Chlorthalidone 25 Mg Tab PO QDAY [facility] Clonidine HCl 0.2 mg 03/22/21 19:00 03/22/21 18:52 Clonidine 0.2 Mg Tab PO 0.2 mg Q24HR [facility] Administration Dextrose 50 ml 03/21/21 22:36 Dextrose 50% In Water (25gm) 50 Ml Syringe IV Q30MIN PRN Hypoglycemia Protocol Hydralazine HCl 100 mg 03/22/21 19:00 03/22/21 21:24 Hydralazine 100 Mg Tab PO 100 mg BID S[facility] Administration Insulin Human Lispro 0 unit 03/22/21 07:30 03/22/21 21:23 Insulin Lispro 100 Unit/Ml SUB-Q 4 unit ACHS [facility] Administration Protocol Magnesium Hydroxide 30 ml 03/21/21 22:36 Magnesium Hydroxide (Mom) Oral Liqd Udc PO Q4H PRN Constipation Metoclopramide HCl 10 mg 03/21/21 22:36 Metoclopramide 10 Mg Tab PO Q6H PRN Nausea And Vomiting Morphine Sulfate 4 mg 03/21/21 22:36 03/22/21 00:19 Morphine 4 Mg/1 Ml Inj IV 4 mg Q4H PRN Administration Pain , Severe (7-10) Morphine Sulfate 2 mg 03/21/21 22:36 03/23/21 00:44 Morphine 2 Mg/1 Ml Inj IV 2 mg Q4H PRN Administration Pain, Moderate (4-6) Ondansetron HCl 4 mg 03/21/21 22:36 03/23/21 00:52 Ondansetron 4 Mg/2 Ml Inj IV 4 mg Q8H PRN Administration Nausea And Vomiting Promethazine HCl 25 mg 03/21/21 22:36 Promethazine 25 Mg Rect Supp ME Q6H PRN Nausea And Vomiting Sodium Chloride 10 ml 03/21/21 22:36 Sodium Chloride 0.9% 10 Ml Flush Syringe IV PRN PRN LINE FLUSH Nutrition/Malnutrition Assess - Dietary Evaluation Nutrition/Malnutrition Findings: Nutrition Notes Start: 03/22/21 16:04 Freq: Status: Active Protocol: Document 03/22/21 16:05 DESHAUN (Rec: 03/22/21 16:25 DESHAUN [id number]) Nutrition Notes Need for Assessment generated from: MD Order,Education Initial or Follow up Assessment Current Diagnosis Diabetes,Hypertension, Hyperlipidemia Other Pertinent Diagnosis Possible Stroke, hypokalemia, Atrial Fibrilation. Current Diet N/A at the time. Labs/Tests 03/22: Na 136, Cl 97, Glu 271, TG 236, Tchol 290, LDL 216. Pertinent Medications 03/22: D50w; 50 ml Q 30 min, Insulin, others nutritionally unremarkable. Height 5 ft 3 in Weight 76.204 kg [place] Body Weight (kg) 52.27 BMI 29.7 Weight Status Overweight Subjective/Other Information RD consult for Nutrition education. Percent of energy/protein needs met: N/A at the time Burn Absent Trauma Absent GI Symptoms None Food Allergy No Skin Integrity/Comment Clear, warm, dry. #1 Nutrition Diagnosis No nutrition diagnosis at this time Comments: Pt appears to be unfit for nutrition education at the time, due to ongoing medical procedures, current condition, Pt is still on Hold for a room assignment. Nutrition education regarding Chronic metabolic conditions and Stroke will be provided on F/U visit, once conditions are more suitable. Is patient on ventilator? No Is Patient Ambulatory and/or Out of Bed Yes REE-([place]-ambulatory/OOB) [ 1659.021 NUTR.MSJOOB] Kcal/Kg value to use for calculation 26 Approximate Energy Requirements Using 1981 kcal/Kg Calculation Used for Recommendations Kcal/kg Additional Notes Protein: 0.8-1 g/Kg; 423-52 g/ day (from IBW). Fluids: 1 ml/Kcal, or as per MD. Nutrition Intervention Change Diet Order: There is no Diet Order at the time. When pertinent, advance to Cardiac/Consistent Carbohydrates Diet. Consider Speech Therapy recommendations. Goal #1 Maintain body weight within +/ -3% of current BWt during LOS. Goal #2 Reach and maintain acceptable chemistry lab values during LOS. Follow-Up By: 03/24/21 Additional Comments Continue monitoring Hydration and BM; when pertinent, food tolerance, and %PO intake of meals.
[2021-03-23] MEDS: CHLORTHALIDONE 25 MG TAB PO SCH (11:02)
[2021-03-24] MEDS: ACETAMINOPHEN 325 MG TAB PO PRN ×2 (02:53→19:23)
[2021-03-24] MEDS: INSULIN LISPRO 100 UNIT/ML SUB-Q SCH ×4 (09:22→21:11)
[2021-03-24] MEDS: amLODIPine 10 MG TAB PO SCH (09:23)
[2021-03-24] MEDS: CHLORTHALIDONE 25 MG TAB PO SCH (09:23)
[2021-03-24] MEDS: hydrALAZINE 100 MG TAB PO SCH ×2 (09:23→21:11)
[2021-03-24] MEDS: MORPHINE 2 MG/1 ML INJ IV PRN ×2 (09:23→23:56)
[2021-03-24] MEDS: cloNIDine 0.2 MG TAB PO SCH (09:23)
[2021-03-24] MEDS: ASPIRIN 325 MG TAB PO SCH (09:23)
--- NOTE | 2021-03-24 10:26 | Progress Note ---
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 Her blood pressure on admission was reading about 200s systolic prior to reporting to the emergency room. She denied any slurred speech or facial asymmetry and denied any difficulty swallowing. She denied any bladder or urinary incontinence. Denied any blurry vision. However, she has known history of left eye prosthesis. Work-up in the emergency room included CT scan which revealed a 5 mm hypodensity in the right thalamus consistent with a chronic lacunar ischemic injury. Chest x-ray showed no acute findings. CVA with left-sided numbness Hypokalemia Diabetes mellitus type 2 Hypertension Paroxysmal atrial fibrillation 03/22/2021. We will continue with stroke work-up and follow-up MRI of brain, echocardiogram and carotid ultrasound. Neurology consultation pending. PT/OT/ST evaluations. 03/23/2021. Carotid Doppler reveals AUSTIN with 50 to 69% stenosis and LICA with less than 50% stenosis. Echocardiogram reveals left ventricular systolic function normal with EF in normal range 50-55%. Mild diastolic dysfunction. No PFO. MRI reveals subacute nonhemorrhagic lacunar infarct in the right thalamus. Await neurology consultation. Continue aspirin and Lipitor. Await physical therapy evaluation. 03/24/2021. Await physical therapy recommendations with regards to discharge. Anticipate discharge later today or in a.m. per PT recommendations. Continue secondary prevention with aspirin and Lipitor. History Interval history: No new issues overnight Hospitalist Physical - Constitutional Vitals: Temp Pulse Resp BP Pulse Ox 97.6 F 79 18 159/59 97 03/24/21 08:00 03/24/21 08:00 03/24/21 08:00 03/24/21 08:00 03/24/21 08:00 General appearance: Present: no acute distress, well-nourished - EENT Eyes: Present: PERRL, EOM intact ENT: hearing intact, clear oral mucosa, dentition normal - Neck Neck: Present: supple, normal ROM - Respiratory Respiratory effort: normal Respiratory: bilateral: CTA - Cardiovascular Rhythm: regular Heart Sounds: Present: S1 & S2. Absent: gallop, rub - Extremities Extremities: no ischemia, No edema, Full ROM - Abdominal General gastrointestinal: soft, non-tender, non-distended, normal bowel sounds - Integumentary Integumentary: Present: clear, warm, dry - Neurologic Neurologic: CNII-XII intact, moves all extremities HEART Score - HEART Score EKG: Non-specific Age: 45-65 Risk factors: > 3 risk factors or hx of atherosclerotic disease Troponin: Troponin T < 0.010 ng/mL (0.00-0.029) 03/21/21 19:07 Troponin: < normal limit - Critical Actions Critical Actions: 4-6 pts:12-16.6% risk of adverse cardiac event. Should be admitted Results - Labs CBC & Chem 7: 03/21/21 19:07 03/22/21 06:53 Labs: Laboratory Last Values WBC 10.9 K/mm3 (4.5-11.0) 03/21/21 19:07 RBC 5.46 M/mm3 (3.65-5.03) H 03/21/21 19:07 Hgb 13.8 gm/dl (10.1-14.3) 03/21/21 19:07 Hct 41.0 % (30.3-42.9) 03/21/21 19:07 MCV 75 fl (79-97) L 03/21/21 19:07 MCH 25 pg (28-32) L 03/21/21 19:07 MCHC 34 % (30-34) 03/21/21 19:07 RDW 16.7 % (13.2-15.2) H 03/21/21 19:07 Plt Count 434 K/mm3 (140-440) 03/21/21 19:07 Lymph % (Auto) 28.4 % (13.4-35.0) 03/21/21 19:07 [place] % (Auto) 5.0 % (0.0-7.3) 03/21/21 19:07 Eos % (Auto) 1.2 % (0.0-4.3) 03/21/21 19:07 Baso % (Auto) 1.1 % (0.0-1.8) 03/21/21 19:07 Lymph # (Auto) 3.1 K/mm3 (1.2-5.4) 03/21/21 19:07 [place] # (Auto) 0.5 K/mm3 (0.0-0.8) 03/21/21 19:07 Eos # (Auto) 0.1 K/mm3 (0.0-0.4) 03/21/21 19:07 Baso # (Auto) 0.1 K/mm3 (0.0-0.1) 03/21/21 19:07 Seg Neutrophils % 64.3 % (40.0-70.0) 03/21/21 19:07 Seg Neutrophils # 7.0 K/mm3 (1.8-7.7) 03/21/21 19:07 PT 13.3 Sec. (12.2-14.9) 03/21/21 19:07 INR 0.91 (0.87-1.13) 03/21/21 19:07 APTT 29.1 Sec. (24.2-36.6) 03/21/21 19:07 Thrombin Time 17.7 Sec. (15.1-19.6) 03/21/21 19:07 Sodium 136 mmol/L (137-145) L 03/22/21 06:53 Potassium 3.9 mmol/L (3.6-5.0) D 03/22/21 06:53 Chloride 97.0 mmol/L (98-107) L 03/22/21 06:53 Carbon Dioxide 27 mmol/L (22-30) 03/22/21 06:53 Anion Gap 16 mmol/L 03/22/21 06:53 BUN 14 mg/dL (7-17) 03/22/21 06:53 Creatinine 0.6 mg/dL (0.6-1.2) 03/22/21 06:53 Estimated GFR > 60 ml/min 03/22/21 06:53 BUN/Creatinine Ratio 23 % 03/22/21 06:53 Glucose 271 mg/dL (65-100) H 03/22/21 06:53 POC Glucose 365 mg/dL (70-105) H 03/24/21 07:37 Calcium 9.1 mg/dL (8.4-10.2) 03/22/21 06:53 Magnesium 2.10 mg/dL (1.7-2.3) 03/21/21 19:07 Total Bilirubin 0.30 mg/dL (0.1-1.2) 03/21/21 19:07 AST 38 units/L (5-40) 03/21/21 19:07 ALT 37 units/L (7-56) 03/21/21 19:07 Alkaline Phosphatase 204 units/L (35-129) H 03/21/21 19:07 Total Creatine Kinase 101 units/L (30-135) 03/21/21 19:07 CK-MB (CK-2) 1.4 ng/mL (0.0-4.0) 03/21/21 19:07 CK-MB (CK-2) Rel Index 1.3 (0-4) 03/21/21 19:07 Troponin T < 0.010 ng/mL (0.00-0.029) 03/21/21 19:07 Total Protein 8.0 g/dL (6.3-8.2) 03/21/21 19:07 Albumin 3.9 g/dL (3.9-5) 03/21/21 19:07 Albumin/Globulin Ratio 1.0 % 03/21/21 19:07 Triglycerides 236 mg/dL (2-149) H 03/22/21 06:53 Cholesterol 290 mg/dL (50-199) H 03/22/21 06:53 LDL Cholesterol Direct 216 mg/dL (50-130) H 03/22/21 06:53 HDL Cholesterol 44 mg/dL (40-59) 03/22/21 06:53 Cholesterol/HDL Ratio 6.59 % 03/22/21 06:53 Urine Color Yellow (Yellow) 03/21/21 21:16 Urine Turbidity Clear (Clear) 03/21/21 21:16 Urine pH 6.0 (5.0-7.0) 03/21/21 21:16 Ur Specific [place] 1.015 (1.003-1.030) 03/21/21 21:16 Urine Protein >500 mg/dL (Negative) 03/21/21 21:16 Urine Glucose (UA) >=500 mg/dL (Negative) 03/21/21 21:16 Urine Ketones Tr mg/dL (Negative) 03/21/21 21:16 Urine Blood Neg (Negative) 03/21/21 21:16 Urine Nitrite Neg (Negative) 03/21/21 21:16 Urine Bilirubin Neg (Negative) 03/21/21 21:16 Urine Urobilinogen < 2.0 mg/dL (<2.0) 03/21/21 21:16 Ur Leukocyte Esterase Neg (Negative) 03/21/21 21:16 Urine WBC (Auto) 2.0 /HPF (0.0-6.0) 03/21/21 21:16 Urine RBC (Auto) 3.0 /HPF (0.0-6.0) 03/21/21 21:16 U Epithel Cells (Auto) 8.0 /HPF (0-13.0) 03/21/21 21:16 Urine Bacteria (Auto) 1+ /HPF (Negative) 03/21/21 21:16 Urine Mucus Few /HPF 03/21/21 21:16 Calderón/IV: Voiding Method Toilet Active Medications - Current Medications Current Medications: Generic Name Dose Route Start Last Admin Trade Name Freq PRN Reason Stop Dose Admin Acetaminophen 650 mg 03/21/21 22:36 03/24/21 02:53 Acetaminophen 325 Mg Tab PO 650 mg Q4H PRN Administration Pain, Mild (1-3) Amlodipine Besylate 10 mg 03/23/21 10:00 03/24/21 09:23 Amlodipine 10 Mg Tab PO 10 mg QDAY [place] Administration Aspirin 325 mg 03/22/21 10:00 03/24/21 09:23 Aspirin 325 Mg Tab PO 325 mg QDAY [place] Administration Atorvastatin Calcium 40 mg 03/22/21 22:00 03/23/21 21:52 Atorvastatin 40 Mg Tab PO 40 mg QHS [place] Administration Bisacodyl 10 mg 03/21/21 22:36 Bisacodyl 10 Mg Rect Supp NE QDAY PRN Constipation Chlorthalidone 25 mg 03/23/21 10:00 03/24/21 09:23 Chlorthalidone 25 Mg Tab PO 25 mg QDAY [place] Administration Clonidine HCl 0.2 mg 03/22/21 19:00 03/24/21 09:23 Clonidine 0.2 Mg Tab PO 0.2 mg Q24HR [facility] Administration Dextrose 50 ml 03/21/21 22:36 Dextrose 50% In Water (25gm) 50 Ml Syringe IV Q30MIN PRN Hypoglycemia Protocol Hydralazine HCl 100 mg 03/22/21 19:00 03/24/21 09:23 Hydralazine 100 Mg Tab PO 100 mg BID [place] Administration Insulin Human Lispro 0 unit 03/22/21 07:30 03/24/21 09:22 Insulin Lispro 100 Unit/Ml SUB-Q 8 unit ACHS [facility] Administration Protocol Magnesium Hydroxide 30 ml 03/21/21 22:36 Magnesium Hydroxide (Mom) Oral Liqd Udc PO Q4H PRN Constipation Metoclopramide HCl 10 mg 03/21/21 22:36 Metoclopramide 10 Mg Tab PO Q6H PRN Nausea And Vomiting Miscellaneous Medication 10 mg 03/25/21 10:00 Amlodipine Benzoate PO DAILY [facility] Miscellaneous Medication 10 mg 03/25/21 10:00 Bystolic PO DAILY [facility] Miscellaneous Medication 25 mg 03/25/21 10:00 Chlorthalidone PO DAILY [facility] Miscellaneous Medication 0.2 mg 03/25/21 10:00 Clonidine Hcl PO DAILY [facility] Miscellaneous Medication 0.75 mg 03/31/21 10:00 Dulaglutide [Trulicity] SQ QWEEK [facility] Miscellaneous Medication 100 mg 03/24/21 14:00 Hydralazine PO TID [facility] Miscellaneous Medication 40 units 03/24/21 18:00 Insulin Lispro [Humalog 100 Units/Ml Kwikpen] SQ QPM [facility] Miscellaneous Medication 50 units 03/25/21 10:00 Insulin Lispro [Humalog 100 Units/Ml Kwikpen] SQ QAM [facility] Morphine Sulfate 4 mg 03/21/21 22:36 03/22/21 00:19 Morphine 4 Mg/1 Ml Inj IV 4 mg Q4H PRN Administration Pain , Severe (7-10) Morphine Sulfate 2 mg 03/21/21 22:36 03/24/21 09:23 Morphine 2 Mg/1 Ml Inj IV 2 mg Q4H PRN Administration Pain, Moderate (4-6) Ondansetron HCl 4 mg 03/21/21 22:36 03/23/21 00:52 Ondansetron 4 Mg/2 Ml Inj IV 4 mg Q8H PRN Administration Nausea And Vomiting Promethazine HCl 25 mg 03/21/21 22:36 Promethazine 25 Mg Rect Supp NE Q6H PRN Nausea And Vomiting Sodium Chloride 10 ml 03/21/21 22:36 Sodium Chloride 0.9% 10 Ml Flush Syringe IV PRN PRN LINE FLUSH Nutrition/Malnutrition Assess - Dietary Evaluation Nutrition/Malnutrition Findings: Nutrition Notes Start: 03/22/21 16:04 Freq: Status: Active Protocol: Document 03/22/21 16:05 DESHAUN (Rec: 03/22/21 16:25 DESHAUN [id number]) Nutrition Notes Need for Assessment generated from: MD Order,Education Initial or Follow up Assessment Current Diagnosis Diabetes,Hypertension, Hyperlipidemia Other Pertinent Diagnosis Possible Stroke, hypokalemia, Atrial Fibrilation. Current Diet N/A at the time. Labs/Tests 03/22: Na 136, Cl 97, Glu 271, TG 236, Tchol 290, LDL 216. Pertinent Medications 03/22: D50w; 50 ml Q 30 min, Insulin, others nutritionally unremarkable. Height 5 ft 3 in Weight 76.204 kg [place] Body Weight (kg) 52.27 BMI 29.7 Weight Status Overweight Subjective/Other Information RD consult for Nutrition education. Percent of energy/protein needs met: N/A at the time Burn Absent Trauma Absent GI Symptoms None Food Allergy No Skin Integrity/Comment Clear, warm, dry. #1 Nutrition Diagnosis No nutrition diagnosis at this time Comments: Pt appears to be unfit for nutrition education at the time, due to ongoing medical procedures, current condition, Pt is still on Hold for a room assignment. Nutrition education regarding Chronic metabolic conditions and Stroke will be provided on F/U visit, once conditions are more suitable. Is patient on ventilator? No Is Patient Ambulatory and/or Out of Bed Yes REE-([facility]-ambulatory/OOB) [ 1659.021 NUTR.MSJOOB] Kcal/Kg value to use for calculation 26 Approximate Energy Requirements Using 1981 kcal/Kg Calculation Used for Recommendations Kcal/kg Additional Notes Protein: 0.8-1 g/Kg; 423-52 g/ day (from IBW). Fluids: 1 ml/Kcal, or as per MD. Nutrition Intervention Change Diet Order: There is no Diet Order at the time. When pertinent, advance to Cardiac/Consistent Carbohydrates Diet. Consider Speech Therapy recommendations. Goal #1 Maintain body weight within +/ -3% of current BWt during LOS. Goal #2 Reach and maintain acceptable chemistry lab values during LOS. Follow-Up By: 03/24/21 Additional Comments Continue monitoring Hydration and BM; when pertinent, food tolerance, and %PO intake of meals.
[2021-03-24] MEDS ORDERED: cloNIDine 0.2 MG TAB PO SCH (14:00)
[2021-03-24] MEDS ORDERED: NON-FORMULARY EACH (Hydralazine 100 MG) PO SCH (14:00)
[2021-03-24] MEDS ORDERED: hydrALAZINE 100 MG TAB PO SCH (14:00)
[2021-03-24] MEDS ORDERED: INSULIN NPH/REGULAR 70/30 INJ SUB-Q SCH (17:00)
[2021-03-24] MEDS ORDERED: NON-FORMULARY EACH (Insulin Lispro [Humalog 100 Units/Ml Kwikpen] 100 UNIT/ML Insuln.Pen) SQ SCH (18:00)
[2021-03-24] MEDS ORDERED: INSULIN LISPRO 100 UNIT/ML SUB-Q SCH (18:00)
[2021-03-25 07:44] VITALS: BP 157/59
--- NOTE | 2021-03-25 08:37 | Discharge Summary ---
Providers - Providers Date of Admission: 03/24/21 17:41 Date of discharge: 03/25/21 Attending physician: DARIEN ISAAC 03/21/21 Consult to Physician [CONS] Routine Comment: Consulting Provider: FABIAN GRIGSBY Physician Instructions: Reason For Exam: Subacute CVA 03/21/21 22:36 Consult to Dietitian/Nutrition [CONS] Routine Physician Instructions: Reason For Exam: Reason for Consult: Diet education Consult to Dietitian/Nutrition [CONS] Routine Physician Instructions: Reason For Exam: Reason for Consult: Nutrition Recommendations Reason for Consult: Diet education Occupational Therapy Evaluate and Treat [CONS] Routine Comment: Reason For Exam: Neuro deficits Physical Therapy Evaluation and Treat [CONS] Routine Comment: Reason For Exam: Neuro deficits Primary care physician: GIFT MANAGER Hospitalization Reason for admission: left arm numbness Condition: Good Hospital course: 65-year-old -[place] female with known history of hypertension, hyperlipidemia, diabetes mellitus and known history of atrial fibrillation presented to the emergency room complaining of left-sided numbness which has been ongoing for about 6 days [employer]. Patient reported that her blood pressure had not been well controlled at home. Her blood pressure on admission was reading about 200s systolic prior to reporting to the emergency room. She denied any slurred speech or facial asymmetry and denied any difficulty swallowing. She denied any bladder or urinary incontinence. Denied any blurry vision. However, she has known history of left eye prosthesis. Work-up in the emergency room included CT scan which revealed a 5 mm hypodensity in the right thalamus consistent with a chronic lacunar ischemic injury. Chest x-ray showed no acute findings. The patient was admitted with diagnosis of subacute thalamic infarct, hypokalemia, diabetes mellitus type 2, hypertension, paroxysmal atrial fibrillation and left upper extremity numbness. Hospital course: 03/22/2021. We will continue with stroke work-up and follow-up MRI of brain, echocardiogram and carotid ultrasound. Neurology consultation pending. PT/OT/ST evaluations. 03/23/2021. Carotid Doppler reveals [place] with 50 to 69% stenosis and LICA with less than 50% stenosis. Echocardiogram reveals left ventricular systolic function normal with EF in normal range 50-55%. Mild diastolic dysfunction. No PFO. MRI reveals subacute nonhemorrhagic lacunar infarct in the right thalamus. Await neurology consultation. Continue aspirin and Lipitor. Await physical therapy evaluation. 03/24/2021. Await physical therapy recommendations with regards to discharge. Anticipate discharge later today or in a.m. per PT recommendations. Continue secondary prevention with aspirin and Lipitor. 03/25/2021. Physical therapy has recommended no needs for discharge. Patient will be discharged home and is to follow-up with primary care physician. Dedicated discharge time 32 minutes Disposition: HOME / SELF CARE / HOMELESS Final Discharge Diagnosis (Prints w/discharge instructions): subacute nonhemorrhagic lacunar infarct in the right thalamus, hypokalemia, diabetes mellitus type 2, hypertension, history of atrial fibrillation Core Measure Documentation - Palliative Care Palliative Care/ Comfort Measures: Not Applicable - Core Measures Any of the following diagnoses?: none Exam - Constitutional Vitals: Temp Pulse Resp BP Pulse Ox 97.6 F 80 18 157/59 98 03/25/21 07:40 03/25/21 07:40 03/25/21 07:40 03/25/21 07:40 03/25/21 07:40 General appearance: Present: no acute distress, well-nourished - EENT Eyes: Present: PERRL ENT: hearing intact, clear oral mucosa - Neck Neck: Present: supple, normal ROM - Respiratory Respiratory effort: normal Respiratory: bilateral: CTA - Cardiovascular Heart Sounds: Present: S1 & S2. Absent: rub, click - Extremities Extremities: pulses symmetrical, No edema Peripheral Pulses: within normal limits - Abdominal General gastrointestinal: Present: soft, non-tender, non-distended, normal bowel sounds Female genitourinary: Present: normal - Integumentary Integumentary: Present: clear, warm, dry - Musculoskeletal Musculoskeletal: gait normal, strength equal bilaterally - Psychiatric Psychiatric: appropriate mood/affect, intact judgment & insight - Neurologic Neurologic: CNII-XII intact, moves all extremities Plan Activity: advance as tolerated Weight Bearing Status: Weight Bear as Tolerated Diet: low fat, low cholesterol, low salt, diabetic Follow up with: PRIMARY MD JOLANTA [Primary Care Provider] - 3-5 Days FABIAN GRIGSBY MD [Staff Physician] - 7 Days Prescriptions: Amlodipine Benzoate 10 mg PO DAILY #30 Aspirin 325 mg PO QDAY #30 tablet Bystolic 10 mg PO DAILY #30 Chlorthalidone 25 mg PO DAILY #30 cloNIDine HCL 0.2 mg PO DAILY #30 HumaLOG Mix 75-25 Kwikpen 50 units SQ QAM 30 Days HumaLOG Mix 75-25 Kwikpen 40 units SQ QPM 30 Days hydrALAZINE 100 mg PO TID #90 AtorvaSTATin [Lipitor] 40 mg PO QHS #30 tab
[2021-03-25] MEDS: INSULIN LISPRO 100 UNIT/ML SUB-Q SCH (09:49)
[2021-03-25] MEDS: ASPIRIN 325 MG TAB PO SCH (09:50)
[2021-03-25] MEDS: CHLORTHALIDONE 25 MG TAB PO SCH (09:50)
[2021-03-25] MEDS: cloNIDine 0.2 MG TAB PO SCH (09:50)
[2021-03-25] MEDS: hydrALAZINE 100 MG TAB PO SCH (09:50)
[2021-03-25] MEDS: amLODIPine 10 MG TAB PO SCH (09:51)
[2021-03-25] MEDS ORDERED: NON-FORMULARY EACH (Insulin Lispro [Humalog 100 Units/Ml Kwikpen] 100 UNIT/ML Insuln.Pen) SQ SCH (10:00)
[2021-03-25] MEDS ORDERED: AMLODIPINE 10 MG PO SCH (10:00)
[2021-03-25] MEDS ORDERED: BYSTOLIC 10 MG PO SCH (10:00)
[2021-03-25] MEDS ORDERED: INSULIN NPH/REGULAR 70/30 INJ SUB-Q SCH (10:00)
[2021-03-25] MEDS ORDERED: amLODIPine 10 MG TAB PO SCH (10:00)
[2021-03-25] MEDS ORDERED: CHLORTHALIDONE 25 MG PO SCH (10:00)
[2021-03-25] MEDS ORDERED: INSULIN LISPRO 100 UNIT/ML SUB-Q SCH (10:00)
[2021-03-25] MEDS ORDERED: CLONIDINE HCL 0.2 MG PO SCH (10:00)
[2021-03-25] MEDS ORDERED: CHLORTHALIDONE 25 MG TAB PO SCH (10:00)
[2021-03-25] MEDS ORDERED: METOPROLOL SUCCINATE XL 100 MG TAB PO SCH (10:00)
[2021-03-31] MEDS ORDERED: NON-FORMULARY EACH (Dulaglutide [Trulicity] 0.75 MG/0.5 ML Pen.Injctr) SQ SCH (10:00)
== END 2021-03-25 11:40 | disposition home or self-care (01) | DRG 66 ==
LOC: ED 18:07 → 4A 21:56 → OBSVTOIN 03-24 17:41
PROVIDERS: ADMIT Internal Medicine Geriatric Medicine; ATTEND Hospitalist
DX: I63.81 Other cerebral infarction due to occlusion or stenosis of small artery (principal); I48.0 Paroxysmal atrial fibrillation; I10 Essential (primary) hypertension; Z20.822 Contact with and (suspected) exposure to COVID-19; E11.9 Type 2 diabetes mellitus without complications; Z90.710 Acquired absence of both cervix and uterus; E87.6 Hypokalemia
CPT/HCPCS: 36415; 70450; 70551; 71046; 80048; 80053; 80061; 81001; 82550; 82553; 82962; 83735; 84484; 85025; 85610; 85670; 85730; 93005; 93306; 93880; G0378; Q0177; Q9967; J1815; J2060; J2270; J2405